=== PATIENT | female | born 2000 | race African-American/Black ===

== ENCOUNTER 2023-05-30 12:04 | Emergency (ER) | payer OTHER ==
[~2023-05-30] VITALS: Ht 172.7 cm; Wt 59.1 kg
[~2023-05-30 12:04] MED LIST: NOCURR
[2023-05-30 12:06] VITALS: TEMP 98.3
[2023-05-30] MEDS ORDERED: METR500 PO (14:05)
[2023-05-30 14:09] VITALS: BP 114/62; PULSE 60; RESP 15
[2023-05-30 14:15] LABS: APPEARANCE,URINE CLEAR (CLEAR); BILIRUBIN,URINE NEGATIVE (NEGATIVE); COLOR,URINE COLORLESS (YELLOW); GLUCOSE, URINE (UA) NEGATIVE (NEGATIVE); KETONES,URINE NEGATIVE (NEGATIVE); LEUKOCYTE ESTERASE ,URINE NEGATIVE (NEGATIVE); NITRATE,URINE NEGATIVE (NEGATIVE); OCCULT BLOOD,URINE NEGATIVE (NEGATIVE); PROTEIN,URINE NEGATIVE (NEGATIVE); SPECIFIC GRAVITIY, URINE 1.004 (1.003-1.030); UROBILINOGEN,URINE <=1.0 mg/dL (<=1.0)
[2023-05-30 14:19] LABS: HCG,QUAL URINE NEGATIVE (NEGATIVE)
== END 2023-05-30 14:35 | disposition home or self-care (01) ==
LOC: EMS 12:13
DX: A64 Unspecified sexually transmitted disease (principal)
CPT/HCPCS: 81003; 84703; 87491; 87591; 99283

== ENCOUNTER 2023-07-04 13:25 | Emergency (ER) | payer OTHER ==
[~2023-07-04] VITALS: Ht 170.2 cm; Wt 75.0 kg
[~2023-07-04 13:25] MED LIST changes: +METR500 PO
[2023-07-04 13:40] VITALS: BP 107/68; PULSE 67; RESP 16; TEMP 98.1
[2023-07-04] MEDS ORDERED: METR500 PO (15:39)
== END 2023-07-04 16:14 | disposition home or self-care (01) ==
LOC: EMS 13:25
DX: N76.0 Acute vaginitis (principal)
CPT/HCPCS: 87210; 99281; 99283

== ENCOUNTER 2024-08-13 23:03 | Emergency (ER) | payer OTHER ==
[~2024-08-13] VITALS: Ht 170.2 cm; Wt 65.9 kg
[2024-08-13 23:51] VITALS: BP 113/62; PULSE 90; RESP 22; TEMP 97.8; O2SAT 100
[2024-08-14 01:41] LABS: BASOPHILS % (AUTO) 0.4 % (0.0-2.0); EOSINOPHILS % (AUTO) 0.1 % (1.0-6.0); HEMATOCRIT 38.6 % (36-46); HEMOGLOBIN 12.7 g/dL (12.0-16.0); LYMPHOCYTES # (AUTO) 0.5 K/uL (1.0-4.8); LYMPHOCYTES % (AUTO) 6.4 % (22.0-44.0); MEAN CORPUSCULAR VOLUME 91 fL (80-100); MONOCYTES # (AUTO) 0.3 K/uL (0.1-1.0); NEUTROPHILS # (AUTO) 6.9 K/uL (1.8-7.7); PLATELET COUNT (AUTO) 276 K/uL (150-450); RED BLOOD CELL COUNT(AUTO) 4.24 MIL/uL (4.00-5.20); WHITE BLOOD COUNT (AUTO) 7.8 K/uL (4.5-11.0)
[2024-08-14 01:48] LABS: NEUTROPHILS % (AUTO) 89.1 % (40.0-70.0)
[2024-08-14 01:53] LABS: ANION GAP 12 mmol/L (8-16); CALCIUM, TOTAL 9.3 mg/dL (8.8-10.5); CARBON DIOXIDE 27 mmol/L (22-29); CHLORIDE 103 mmol/L (98-107); CREATININE 0.71 mg/dL (0.60-1.30); GLOMERULAR FILTR. RATE CALC > 60 mL/min (>60); GLUCOSE,RANDOM 79 mg/dL (70-110); SODIUM SERUM 142 mmol/L (136-145); UREA NITROGEN, BLOOD 11 mg/dL (7-18)
[2024-08-14 03:17] LABS: APPEARANCE,URINE CLEAR (CLEAR); BILIRUBIN,URINE NEGATIVE (NEGATIVE); COLOR,URINE YELLOW (YELLOW); GLUCOSE, URINE (UA) NEGATIVE (NEGATIVE); KETONES,URINE =>150 mg/dL (NEGATIVE); LEUKOCYTE ESTERASE ,URINE NEGATIVE (NEGATIVE); NITRATE,URINE NEGATIVE (NEGATIVE); OCCULT BLOOD,URINE NEGATIVE (NEGATIVE); PROTEIN,URINE 100-200,SEE CONFIRM mg/dL (NEGATIVE); SPECIFIC GRAVITIY, URINE 1.034 (1.003-1.030); UROBILINOGEN,URINE <=1.0 mg/dL (<=1.0)
[2024-08-14 03:32] LABS: BACTERIA,URINE Few /HPF (None Seen); RBC,URINE 0-2 /HPF (0-2); SULFOSALICYLIC ACID,URINE 1+ (Negative); WBC,URINE 0-2 /HPF (0-5)
[2024-08-14] MEDS ORDERED: OMEP-148 PO (03:55)
[2024-08-14] MEDS ORDERED: ONDA-104 PO (03:55)
[2024-08-14] MEDS ORDERED: ACET-66 PO (03:55)
[2024-08-14] MEDS: ONDANSETRON 4 MG TABLET PO ONE (04:01)
[2024-08-14] MEDS: ACETAMINOPHEN 500 MG TABLET PO ONE (04:01)
== END 2024-08-14 04:04 | disposition home or self-care (01) ==
LOC: EMS 23:03
DX: K29.70 Gastritis, unspecified, without bleeding (principal); N76.0 Acute vaginitis; B96.89 Other specified bacterial agents as the cause of diseases classified elsewhere; R11.2 Nausea with vomiting, unspecified; T75.3XXA Motion sickness, initial encounter; Z79.899 Other long term (current) drug therapy; Z72.89 Other problems related to lifestyle; Y93.89 Activity, other specified; Y99.8 Other external cause status
CPT/HCPCS: 99283; 80048; 81001; 84703; 85025; 36415; Q0162; 81002